=== PATIENT | female | born 1990 | race Hispanic/Latino ===

== ENCOUNTER 2021-01-29 03:10 | Inpatient (IN) | payer BC, MEDICAID ==
[2021-01-29] MEDS ORDERED: ONDANSETRON 4 MG/2 ML INJ IV PRN ×2 (04:11→11:30)
[2021-01-29] MEDS ORDERED: BUTORPHANOL 2 MG/1 ML INJ IV PRN (04:11)
[2021-01-29] MEDS ORDERED: OXYTOCIN 10 UNIT/1 ML INJ IM PRN (04:11)
[2021-01-29] MEDS ORDERED: ePHEDrine SULFATE 50 MG/1 ML INJ IV PRN ×2 (04:11→05:46)
[2021-01-29] MEDS ORDERED: ACETAMINOPHEN 325 MG TAB PO PRN ×2 (04:11→11:30)
[2021-01-29] MEDS ORDERED: miSOPROStol 200 MCG TAB PR PRN (04:11)
[2021-01-29] MEDS ORDERED: MINERAL OIL 30 ML ORAL LIQD PO PRN (04:11)
[2021-01-29] MEDS ORDERED: METHYLERGONOVINE MALEATE 0.2 MG/ML VIAL IM PRN (04:11)
[2021-01-29] MEDS ORDERED: LOPERAMIDE 2 MG CAP PO PRN (04:11)
[2021-01-29] MEDS ORDERED: CARBOPROST TROMETHAMINE 250 MCG/1 ML INJ IM PRN (04:11)
[2021-01-29] MEDS ORDERED: TERBUTALINE 1 MG/1 ML INJ SUB-Q PRN (04:11)
[2021-01-29] MEDS ORDERED: LIDOCAINE (2%) 20 MG/1 ML VIAL 20 ML MDV INFILTRATI ONE (04:11)
[2021-01-29] MEDS ORDERED: fentaNYL 100 MCG/2 ML INJ IV PRN (04:11)
[2021-01-29] MEDS ORDERED: LACTATED RINGERS 1,000 ML IV SCH (04:15)
[2021-01-29] MEDS ORDERED: NALOXONE 2 MG/2 ML INJ IV PRN (05:46)
--- NOTE | 2021-01-29 05:49 | Anesthesia Consultation ---
Anesthesia Consult and Med Hx Date of service: 01/29/21 - Airway Anesthetic Teeth Evaluation: Edentulous ROM Head & Neck: Adequate Mental/Hyoid Distance: Adequate Mallampati Class: Class II Intubation Access Assessment: Probably Good - Pulmonary Exam CTA: Yes - Cardiac Exam Cardiac Exam: RRR - Pre-Operative Health Status ASA Pre-Surgery Classification: ASA2 Proposed Anesthetic Plan: Epidural - Pulmonary Hx Smoking: Yes Hx Asthma: Yes (as a baby) Hx Respiratory Symptoms: No SOB: No COPD: No Home Oxygen Therapy: No Hx Pneumonia: No Hx Sleep Apnea: No - Cardiovascular System Hx Hypertension: No Hx Coronary Artery Disease: No Hx Heart Attack/AMI: No Hx Angina: No Hx Percutaneous Transluminal Coronary Angioplasty (PTCA): No Hx Cardia Arrhythmia: No Hx Pacemaker: No Hx Internal Defibrillator: No Hx Valvular Heart Disease: No Hx Heart Murmur: No Hx Peripheral Vascular Disease: No - Central Nervous System Hx Neuromuscular Disorder: No Hx Seizures: No CVA: No Hx Back Pain: Yes Hx Psychiatric Problems: No - Gastrointestinal Hx Ulcer: No Hx Gastroesophageal Reflux Disease: No - Endocrine Hx Renal Disease: No Hx End Stage Renal Disease: No Hx Cirrhosis: No Hx Liver Disease: No Hx Insulin Dependent Diabetes: No Hx Hypothyroidism: No Hx Hyperthyroidism: No - Hematic Hx Anemia: No Hx Sickle Cell Disease: No - Other Systems Hx Alcohol Use: No Hx Substance Use: No Hx Cancer: No Hx Obesity: Yes
[2021-01-29 05:50] LABS: Hematocrit 33.5 % (30.3-42.9); Hemoglobin 11.2 gm/dl (10.1-14.3); Mean Corpuscular HGB Conc 33 % (30-34); Mean Corpuscular Volume 84 fl (79-97); Platelet Count 255 K/mm3 (140-440)
--- NOTE | 2021-01-29 05:55 | Progress Note ---
Labor Epidural - Labor Epidural Start Time: 05:18 Stop Time: 05:25 Performed by:: NGOC LEÓN Procedure: Patient is requesting a laboring epidural for laboring pain. Patient IDed, H&P reviewed, all questions and concerns were answered, and consent was signed. Timeout was performed at bedside. Patient in sitting position. Sterile prep and drape was performed. [3] ml of 1% lidocaine skin wheal at L[3]- L [4]. 18- gauge Natasha epidural needle was advanced to loss of resistance with saline technique 6cm. Negative CSF negative blood. Epidural catheter advanced to [10] centimeters. [NEGATIVE] Aspiration [NEGATIVE] test dose. Sterile dressing applied. Patient tolerated procedure.
[2021-01-29] MEDS ORDERED: fentaNYL-BUPIV 2 MCG/ML-0.125% 200 MCG/100 ML BAG EPIDURAL SCH (06:00)
--- NOTE | 2021-01-29 06:07 | History and Physical Report ---
History of Present Illness Date of examination: 01/29/21 Date of admission: 01/29/21 Chief complaint: labor History of present illness: Pt presents in active labor EDC Confirmation: 01/23/2021 Gestational Age: 41.0 weeks Past History : 3 Term Births: 2 Premature Births: 0 Living Children: 2 Para: 2 Mult. Births: 0 Prev : 0 Prev. attempt? 0 Aborta: 0 Elect. Ab: 0 Spont. Ab: 0 Ectopics: 0 # 1 Delivery date: 2012 Weeks Gestation: 38 Delivery type: Anesthesia type: epidural Delivery location: [facility] Infant Sex: Female weight: 7-7 Comments: no complications,social induction # 2 Delivery date: 07/15/2015 Weeks Gestation: 40 Delivery type: Vaginal Hours of labor: 7 Anesthesia type: epidural Delivery location: [facility] Infant Sex: female weight: 8.88 Name: Carly Comments: none Past Medical History: Reviewed history from 11/06/2009 and no changes required: Negative Past Medical History Past Surgical History: Reviewed history from 11/06/2009 and no changes required: Negative Past Surgical History Past Medical History Surgery (Non-certified professional midwife): Negative Past Surgical History Abnormal PAP: negative CLARISA Exposure: negative Infertility: negative Uterine Anomaly: negative Uterine Surgery (not C/S): negative Other Gynecologic Problems: negative Social Hx: Patient is single Smoking History: Patient currently smokes every day. Infection History Hx of STD: none HIV Risk Eval: low risk Hepatitis B Risk Eval: low risk Personal hx. of genital herpes: no Partner hx. of genital herpes: no Rash, Viral, or Febrile illness since last LMP? no Varicella/Chicken Pox Status: Immunized Genetic History Congenital Heart Defect: Mom: no Dad: no Yudelka Disease: Mom: no Dad: no Thalassemia Mom: no Dad: no Neural Tube Defect Mom: no Dad: no Down's Syndrome Mom: no Dad: no Jatin-Sachs Mom: no Dad: no Sickle Cell Disease/Trait Mom: no Dad: no Hemophilia Mom: no Dad: no Muscular Dystrophy Mom: no Dad: no Cystic Fibrosis Mom: no Dad: no [place] Chorea Mom: no Dad: no Mental Retardation Mom: no Dad: no Fragile X Mom: no Dad: no Other Genetic/Chromosomal Disorder Mom: no Dad: no Child w/other defect Mom: no Dad: no Enviromental Exposures Xray Exposure: no Medication, drug, or alcohol use since LMP: no Chemical/Other Exposure: no Exposure to Cat Liter: no Hx of Parvovirus (Fifth Disease): no Occupational Exposure to Children: none Active Medications (reviewed today): ZANTAC 150 MG ORAL TABLET (RANITIDINE HCL) 1 tab PO qdaily COLACE 100 MG ORAL CAPSULE (DOCUSATE SODIUM) 1 tab PO BID as needed for constipation Current Allergies (reviewed today): No known allergies Past History - Obstetrical History Expected Date of Delivery: 01/23/21 Actual Gestation: 41 Week(s) 0 Day(s) : 3 Para: 2 Number of Living Children: 2 Medications and Allergies Allergies Allergy/AdvReac Type Severity Reaction Status Date / Time No Known Allergies Allergy Verified 07/15/15 07:42 Home Medications Medication Instructions Recorded Confirmed Last Taken Type Ibuprofen [Motrin 800 MG tab] 800 mg PO TID PRN #30 tablet 01/30/21 Unknown Rx Lidocain2.5%/Prilocai2.5% [Emla] 5 gm TP PRN #1 tube 01/30/21 Unknown Rx Active Meds: Active Medications Acetaminophen (Acetaminophen 325 Mg Tab) 650 mg PO Q4H PRN PRN Reason: Pain, Mild (1-3) Butorphanol Tartrate (Butorphanol 2 Mg/1 Ml Inj) 1 mg IV Q2H PRN PRN Reason: Pain, Moderate(4-6) LABOR PAIN Carboprost Tromethamine (Carboprost Tromethamine 250 Mcg/1 Ml Inj) 250 mcg IM ONCE PRN PRN Reason: Uterine Bleeding Ephedrine Sulfate (Ephedrine Sulfate 50 Mg/1 Ml Inj) 10 mg IV Q2M PRN PRN Reason: Hypotension Fentanyl (Fentanyl 100 Mcg/2 Ml Inj) 100 mcg IV Q2H PRN PRN Reason: Pain,Severe (7-10) LABOR PAIN Lactated Ringer's (Lactated Ringers) 1,000 mls @ 125 mls/hr IV DIRECT TATIANA Last Admin: 01/29/21 05:51 Dose: 125 mls/hr Documented by: Oxytocin/Sodium Chloride (Pitocin/Ns 30 Unit/500ml) 30 units in 500 mls @ 40 mls/hr IV TITR TATIANA; Protocol Fentanyl/Bupivacaine/Sodium Chlor (Fentanyl-Bupiv 2 Mcg/Ml-0.125%) 200 mcg in 100 mls @ 12 mls/hr EPIDURAL TITR TATIANA; Protocol Loperamide HCl (Loperamide 2 Mg Cap) 2 mg PO ONCE PRN PRN Reason: give with Hemabate Methylergonovine Maleate (Methylergonovine Maleate 0.2 Mg/Ml Vial) 0.2 mg IM ONCE PRN PRN Reason: Uterine Bleeding Mineral Oil (Mineral Oil 30 Ml Oral Liqd) 30 ml PO QHS PRN PRN Reason: Constipation Misoprostol (Misoprostol 200 Mcg Tab) 800 mcg MI ONCE PRN PRN Reason: Uterine Bleeding Naloxone HCl (Naloxone 2 Mg/2 Ml Inj) 0.2 mg IV Q5M PRN PRN Reason: Respiratory sedation Ondansetron HCl (Ondansetron 4 Mg/2 Ml Inj) 4 mg IV Q8H PRN PRN Reason: Nausea And Vomiting Oxytocin (Oxytocin 10 Unit/1 Ml Inj) 10 unit IM ONCE PRN PRN Reason: Uterine Bleeding Terbutaline Sulfate (Terbutaline 1 Mg/1 Ml Inj) 0.25 mg SUB-Q ONCE PRN PRN Reason: Hyperstimulation/Hypertonicity - Vital Signs Vital signs: Vital Signs Temp Pulse Resp BP 98.3 F 71 18 117/65 01/29/21 03:52 01/29/21 03:52 01/29/21 03:52 01/29/21 03:52 Temp Pulse Resp BP Pulse Ox 98.2 F 92 H 16 117/75 99 01/29/21 04:52 01/29/21 06:01 01/29/21 04:52 01/29/21 06:01 01/29/21 05:59 Results Result Diagrams: 01/29/21 18:56 All other labs normal. Assessment and Plan - Patient Problems (1) Active labor at term Current Visit: No Status: Acute Plan to address problem: -admit -anticipate -epidural when desired -GBS negative
[2021-01-29 06:28] LABS: Red Cell Distribution Width 21.2 % (13.2-15.2)
[2021-01-29] MEDS: OXYTOCIN DRIP 30 UNITS/500 ML BAG IV SCH ×2 (07:47→08:25)
[2021-01-29] MEDS ORDERED: diphenhydrAMINE 25 MG CAP PO PRN (11:30)
[2021-01-29] MEDS ORDERED: WITCH HAZEL/ GLYCERIN PAD TP PRN (11:30)
[2021-01-29] MEDS ORDERED: IBUPROFEN 600 MG TAB PO SCH (11:30)
[2021-01-29] MEDS ORDERED: LANOLIN/ZINC/DIMETHICONE (LANSINOH) 7 GM TP PRN (11:30)
[2021-01-29] MEDS ORDERED: PROMETHAZINE 25 MG TAB PO PRN (12:00)
[2021-01-29] MEDS: IBUPROFEN ORAL LIQD 100 MG/5 ML ORAL.LIQD PO SCH ×2 (12:12→20:39)
[2021-01-29] MEDS: DOCUSATE SODIUM 100 MG CAP PO SCH ×2 (12:25→22:17)
[2021-01-29] MEDS: PRENATAL VIT27-FE FUMARATE-FOLIC ACID VIT TAB PO SCH (12:25)
[2021-01-29] MEDS ORDERED: METHYLERGONOVINE MALEATE 0.2 MG/ML VIAL IM ONE (14:00)
[2021-01-29] MEDS: oxyCODONE /ACETAMINOPHEN 5-325MG TAB PO PRN ×2 (16:10→22:12)
[2021-01-29 19:21] LABS: Hematocrit 28.9 % (30.3-42.9); Hemoglobin 9.6 gm/dl (10.1-14.3)
--- NOTE | 2021-01-29 21:37 | Procedure Note ---
OB Delivery Note - Delivery Date of Delivery: 01/29/21 (@0743 note is late entry) Surgeon: JONNATHAN OLMEDO Estimated blood loss: other ([id number]) - Vaginal Delivery presentation: vertex Delivery position: OA Intrapartum events: other(please specify) (meconium) Delivery induction: none Delivery monitor: external FHT, external uterine Route of delivery: Delivery placenta: spontaneous Episiotomy: none Delivery laceration: 2nd degree (periurethral;left and right peneal) Delivery repair: vicryl (3-0) Anesthesia: epidural Delivery comments: Delivery as above. Ant shoulder and rest of infant delivered w/o difficulty. given to waiting nurse after being bulb suctioned. Placenta delivered spontaneously intact. Lacerations as noted above and repaired in usual fashion. Pt noted to have some mild atony relieved with pitocin IV, methergine IM, and uterine message. - Infant A at 1 minute: 8 at 5 minutes: 9 Infant Gender: Male (8lbs 4oz)
[2021-01-29] MEDS ORDERED: MAGNESIUM HYDROXIDE (MOM) ORAL LIQD UDC PO PRN (22:00)
[2021-01-30] MEDS: IBUPROFEN ORAL LIQD 100 MG/5 ML ORAL.LIQD PO SCH ×3 (00:02→11:58)
[2021-01-30] MEDS: oxyCODONE /ACETAMINOPHEN 5-325MG TAB PO PRN ×2 (04:41→10:16)
--- NOTE | 2021-01-30 05:34 | Discharge Summary ---
Providers - Providers Date of Admission: 01/29/21 04:11 Date of discharge: 01/30/21 (pt agrees with d/c) Attending physician: JONNATHAN OLMEDO 01/29/21 10:43 Consult to Estate Administrator [CONS] Routine Reason For Exam: assistance with , SNS Primary care physician: JONNATHAN OLMEDO Hospitalization Reason for admission: active labor, IUP at term Delivery: Episiotomy: none Laceration: none Incision: normal Other procedures: none complications: none Discharge diagnosis: IUP at term delivered [place] baby: male Hospital course: uncomplicated vaginal delivery Pt awake No c/o voiced VSS FF below umb Lochia small Perineum intact. H&H 03/27 drop r/t blood loss from delivery. Pt is asymptomatic anemia. Doing well s/p P: d/c today with instructions RTO 1w for circ and 4w for PP care. Pt declines BC @ this time. Condition at discharge: Good Disposition: DC-01 TO HOME OR SELFCARE - Discharge Diagnoses (1) (normal spontaneous vaginal delivery) Status: Acute Comment: RTO 4 weeks PP Care Plan - Discharge Medications Prescriptions: Lidocain2.5%/Prilocai2.5% [Emla] 5 gm TP PRN #1 tube Ibuprofen [Motrin 800 MG tab] 800 mg PO TID PRN #30 tablet PRN Reason: Pain - Provider Discharge Summary Activity: routine, no sex for 6 weeks, no heavy lifting 4 weeks, no strenuous exercise Diet: routine Instructions: routine Additional instructions: [] Smoking cessation referral if applicable(refer to patient education folder for contact #) [] Refer to [facility] Booklet Call your doctor immediately for: * Fever > 100.5 * Heavy vaginal bleeding ( >1 pad per hour) * Severe persistent headache * Shortness of breath * Reddened, hot, painful area to leg or breast * Drainage or odor from incision. * Keep incision clean and dry at all times and follow doctor's instructions regarding bathing/showering - Follow up plan Follow up: JONNATHAN OLMEDO MD [Primary Care Provider] - 7 Days (Congratulations! Please call [phone] to schedule your visit in 4 weeks. Please schedule a 1 week appointment for your son's circumcision. Bring the EMLA cream with you to his visit. Do NOT use at home. Motrin/ibuprofen for pain/cramping. Call with any concerns. )
[2021-01-30] MEDS ORDERED: TETANUS,DIPH,PERTUSS(ACELL) VACCINE 0.5 ML SYRINGE IM ONE (07:46)
[2021-01-30] MEDS ORDERED: IBUPROFEN ORAL LIQD 100 MG/5 ML ORAL.LIQD ONE (11:36)
[2021-01-30] MEDS: PRENATAL VIT27-FE FUMARATE-FOLIC ACID VIT TAB PO SCH (11:58)
[2021-01-30] MEDS: DOCUSATE SODIUM 100 MG CAP PO SCH (11:58)
[2021-01-30] MEDS ORDERED: BENZOCAINE/MENTHOL 20/0.5% TOP SPRAY 56 GM TP PRN (12:08)
--- NOTE | 2021-01-30 13:32 | Post Anesthesia Evaluation ---
- Post Anesthesia Evaluation Patient Participated: Yes Airway Patent: Yes Stable Respiratory Function: Yes Nausea/Vomiting: No Temp > 96.8F: Yes Pain Manageable: Yes Adequeate Hydration: Yes Anesthesia Complications: No Block Receding Appropriately: Yes Patient on Ventilator: No
[2021-01-30 15:48] VITALS: BP 112/64
== END 2021-01-30 15:50 | disposition home or self-care (01) | DRG 807 ==
LOC: TRG 03:10 → APU 03:18 → TRG 04:11 → LD 04:11 → OB 10:42
PROVIDERS: ADMIT Obstetrics & Gynecology; ATTEND Obstetrics & Gynecology
PROC: 10E0XZZ Delivery of Products of Conception, External Approach (ICD-10-PCS; principal; 2021-01-29)
PROC: 0KQM0ZZ Repair Perineum Muscle, Open Approach (ICD-10-PCS; 2021-01-29)
PROC: 3E0R3BZ Introduction of Anesthetic Agent into Spinal Canal, Percutaneous Approach (ICD-10-PCS; 2021-01-29)
PROC: 00HU33Z Insertion of Infusion Device into Spinal Canal, Percutaneous Approach (ICD-10-PCS; 2021-01-29)
DX: O77.0 Labor and delivery complicated by meconium in amniotic fluid (principal); Z37.0 Single live birth; O99.52 Diseases of the respiratory system complicating childbirth; J45.909 Unspecified asthma, uncomplicated; O99.214 Obesity complicating childbirth; O62.2 Other uterine inertia; Z20.822 Contact with and (suspected) exposure to COVID-19; O99.334 Smoking (tobacco) complicating childbirth; F17.210 Nicotine dependence, cigarettes, uncomplicated; O70.1 Second degree perineal laceration during delivery; Z3A.41 41 weeks gestation of pregnancy; O99.02 Anemia complicating childbirth
CPT/HCPCS: 36415; 59025; 85014; 85018; 85027; 86592; 86850; 86900; 86901; 88307; 99211; G0378; G0463; J2210; J2590; J7120; U0003